=== PATIENT | male | born 1930 | race Caucasian/White ===

== ENCOUNTER 2020-07-27 13:57 | Inpatient (IN) ==
[2020-07-29] MEDS ORDERED: Dextrose Gel 15 GM/37.5 ML TUBE PO PRN ×2 (17:58)
[2020-07-29] MEDS ORDERED: D5% in Water 1,000 ML IVC PRN (17:58)
[2020-07-29] MEDS ORDERED: *HR* Dextrose 50 % in Water (Vial) 50 ML VIAL IVP PRN (17:58)
[2020-07-29] MEDS ORDERED: polyethylene glycoL 3350 17 GM POWD.PACK PO PRN (17:59)
[2020-07-29] MEDS: (Cyclosporine [Restasis] 1 DROP) OP SCH (18:49)
[2020-07-29] MEDS: Apixaban 2.5 MG TABLET PO SCH (20:54)
[2020-07-29] MEDS: Artificial Tears SOLN 15 ML BOTTLE BOTH EYES SCH (20:54)
[2020-07-29] MEDS: Insulin LISPRO 300 UNITS/3 ML VIAL SQ SCH (20:55)
[2020-07-29] MEDS: Sennosides/Docusate Sodium TABLET PO PRN (20:56)
[2020-07-29] MEDS: *HR* HYDROcodone/Acet 5/325 mg TABLET PO PRN (20:57)
[2020-07-30] MEDS: (Cyclosporine [Restasis] 1 DROP) OP SCH ×2 (04:55→17:01)
[2020-07-30] MEDS: *HR* HYDROcodone/Acet 5/325 mg TABLET PO PRN (04:55)
[2020-07-30 05:40] LABS: Basophils % 0.3 %; Eosinophils # 0.5 K/mcL (0.0-0.6); Eosinophils % 4.6 %; Hemoglobin 9.1 g/dL (12.9-16.9); Immature Granulocytes % 0.6 % (0-4); Lymphocytes # 1.9 K/mcL (0.6-4.6); Lymphocytes % 15.9 %; Mean Corpuscular HGB Conc 33.7 g/dL (31.6-35.5); Mean Corpuscular Hemoglobin 31.9 pg (28.0-33.3); Mean Corpuscular Volume 94.7 fL (83.0-100.0); Mean Platelet Volume 10.5 fL (9.4-12.4); Monocytes # 1.2 K/mcL (0.0-1.3); Platelet Count 205 K/mcL (140-400); Red Blood Count 2.85 M/mcL (4.19-5.50); Red Cell Distribution Width 13.2 % (11.5-14.5); Segmented Neutrophils % 68.6 %; White Blood Count 11.7 K/mcL (4.3-11.1)
[2020-07-30 05:57] LABS: Calcium 8.5 mg/dL (8.6-10.3); Potassium 4.4 mEq/L (3.5-5.1)
[2020-07-30] MEDS: Apixaban 2.5 MG TABLET PO SCH ×2 (08:14→20:46)
[2020-07-30] MEDS: Loratadine 10 MG TABLET PO SCH (08:14)
[2020-07-30] MEDS: Multivit/Ca/Min/Fe/FA 1 TAB TABLET PO SCH (08:14)
[2020-07-30] MEDS: Cholecalciferol (D-3) 1,000 UNIT (25MCG) TABLET PO SCH (08:14)
[2020-07-30] MEDS: (Omega-3/Dha/Epa/Fish Oil) PO SCH (08:15)
[2020-07-30] MEDS: Artificial Tears SOLN 15 ML BOTTLE BOTH EYES SCH ×4 (08:15→20:46)
[2020-07-30] MEDS: Insulin LISPRO 300 UNITS/3 ML VIAL SQ SCH ×4 (08:23→20:45)
[2020-07-30] MEDS: Insulin DETEMIR 100 UNIT/ML X5UNITS SQ SCH (08:23)
[2020-07-30] MEDS: Sennosides/Docusate Sodium TABLET PO PRN (18:24)
[2020-07-30] MEDS ORDERED: Bisacodyl 10 MG RECTAL SUPPOSITORY RC PRN (22:02)
[2020-07-30] MEDS ORDERED: Lactulose Oral Soln 20 GM/30 ML UDC PO PRN (22:02)
[2020-07-31] MEDS: (Cyclosporine [Restasis] 1 DROP) OP SCH ×2 (05:07→17:55)
[2020-07-31] MEDS: Loratadine 10 MG TABLET PO SCH (08:04)
[2020-07-31] MEDS: polyethylene glycoL 3350 17 GM POWD.PACK PO SCH (08:04)
[2020-07-31] MEDS: Multivit/Ca/Min/Fe/FA 1 TAB TABLET PO SCH (08:04)
[2020-07-31] MEDS: Sennosides/Docusate Sodium TABLET PO SCH ×2 (08:04→19:54)
[2020-07-31] MEDS: Cholecalciferol (D-3) 1,000 UNIT (25MCG) TABLET PO SCH (08:04)
[2020-07-31] MEDS: Apixaban 2.5 MG TABLET PO SCH ×2 (08:04→19:54)
[2020-07-31] MEDS: (Omega-3/Dha/Epa/Fish Oil) PO SCH (08:05)
[2020-07-31] MEDS: Insulin LISPRO 300 UNITS/3 ML VIAL SQ SCH ×4 (08:05→21:30)
[2020-07-31] MEDS: Artificial Tears SOLN 15 ML BOTTLE BOTH EYES SCH ×4 (08:16→19:54)
[2020-07-31] MEDS: Insulin DETEMIR 100 UNIT/ML X5UNITS SQ SCH (08:20)
[2020-07-31] MEDS: *HR* HYDROcodone/Acet 5/325 mg TABLET PO PRN ×2 (11:37→18:45)
[2020-07-31] MEDS ORDERED: SELENIUM SULFIDE APPL TP SCH (17:59)
[2020-08-01] MEDS: (Cyclosporine [Restasis] 1 DROP) OP SCH ×2 (04:41→18:16)
[2020-08-01 05:10] LABS: Basophils % 0.4 %; Eosinophils # 0.7 K/mcL (0.0-0.6); Eosinophils % 6.3 %; Hematocrit 26.1 % (37.5-50.1); Immature Granulocytes % 0.9 % (0-4); Lymphocytes # 2.4 K/mcL (0.6-4.6); Lymphocytes % 22.5 %; Mean Corpuscular HGB Conc 34.5 g/dL (31.6-35.5); Mean Corpuscular Hemoglobin 32.7 pg (28.0-33.3); Mean Corpuscular Volume 94.9 fL (83.0-100.0); Mean Platelet Volume 10.3 fL (9.4-12.4); Monocytes # 1.2 K/mcL (0.0-1.3); Monocytes % 11.1 %; Neutrophils # 6.2 K/mcL (1.6-8.9); Platelet Count 264 K/mcL (140-400); Red Blood Count 2.75 M/mcL (4.19-5.50); Red Cell Distribution Width 13.6 % (11.5-14.5); Segmented Neutrophils % 58.8 %; White Blood Count 10.6 K/mcL (4.3-11.1)
[2020-08-01 05:22] LABS: Calcium 8.8 mg/dL (8.6-10.3); Potassium 4.2 mEq/L (3.5-5.1)
[2020-08-01] MEDS: Sennosides/Docusate Sodium TABLET PO SCH ×2 (08:05→20:59)
[2020-08-01] MEDS: polyethylene glycoL 3350 17 GM POWD.PACK PO SCH (08:06)
[2020-08-01] MEDS: Cholecalciferol (D-3) 1,000 UNIT (25MCG) TABLET PO SCH (08:06)
[2020-08-01] MEDS: Multivit/Ca/Min/Fe/FA 1 TAB TABLET PO SCH (08:06)
[2020-08-01] MEDS: Loratadine 10 MG TABLET PO SCH (08:06)
[2020-08-01] MEDS: Artificial Tears SOLN 15 ML BOTTLE BOTH EYES SCH ×4 (08:06→21:00)
[2020-08-01] MEDS: Apixaban 2.5 MG TABLET PO SCH ×2 (08:06→20:58)
[2020-08-01] MEDS: Insulin LISPRO 300 UNITS/3 ML VIAL SQ SCH ×4 (08:13→21:00)
[2020-08-01] MEDS: Insulin DETEMIR 100 UNIT/ML X5UNITS SQ SCH (08:24)
[2020-08-01] MEDS: *HR* HYDROcodone/Acet 5/325 mg TABLET PO PRN ×3 (09:21→21:15)
[2020-08-02] MEDS: (Cyclosporine [Restasis] 1 DROP) OP SCH ×2 (05:44→18:09)
[2020-08-02] MEDS: *HR* HYDROcodone/Acet 5/325 mg TABLET PO PRN ×3 (05:45→21:53)
[2020-08-02] MEDS: Apixaban 2.5 MG TABLET PO SCH ×2 (08:08→19:46)
[2020-08-02] MEDS: polyethylene glycoL 3350 17 GM POWD.PACK PO SCH (08:08)
[2020-08-02] MEDS: Cholecalciferol (D-3) 1,000 UNIT (25MCG) TABLET PO SCH (08:08)
[2020-08-02] MEDS: Artificial Tears SOLN 15 ML BOTTLE BOTH EYES SCH ×4 (08:08→19:47)
[2020-08-02] MEDS: Insulin DETEMIR 100 UNIT/ML X5UNITS SQ SCH (08:08)
[2020-08-02] MEDS: Sennosides/Docusate Sodium TABLET PO SCH ×2 (08:08→19:46)
[2020-08-02] MEDS: Loratadine 10 MG TABLET PO SCH (08:09)
[2020-08-02] MEDS: Multivit/Ca/Min/Fe/FA 1 TAB TABLET PO SCH (08:09)
[2020-08-02] MEDS: Insulin LISPRO 300 UNITS/3 ML VIAL SQ SCH ×3 (08:09→21:33)
[2020-08-02] MEDS: Carbamide Peroxide 150 DROP/15 ML BOTTLE BOTH EARS SCH (19:47)
[2020-08-02] MEDS ORDERED: Carbamide Peroxide 150 DROP/15 ML BOTTLE LEFT EAR SCH (21:00)
[2020-08-03] MEDS: (Cyclosporine [Restasis] 1 DROP) OP SCH ×2 (06:29→17:26)
[2020-08-03] MEDS: Cholecalciferol (D-3) 1,000 UNIT (25MCG) TABLET PO SCH (08:44)
[2020-08-03] MEDS: Artificial Tears SOLN 15 ML BOTTLE BOTH EYES SCH ×4 (08:44→20:10)
[2020-08-03] MEDS: Multivit/Ca/Min/Fe/FA 1 TAB TABLET PO SCH (08:44)
[2020-08-03] MEDS: Apixaban 2.5 MG TABLET PO SCH ×2 (08:45→20:13)
[2020-08-03] MEDS: polyethylene glycoL 3350 17 GM POWD.PACK PO SCH (08:45)
[2020-08-03] MEDS: Carbamide Peroxide 150 DROP/15 ML BOTTLE BOTH EARS SCH ×2 (08:45→20:11)
[2020-08-03] MEDS: Loratadine 10 MG TABLET PO SCH (08:45)
[2020-08-03] MEDS: Sennosides/Docusate Sodium TABLET PO SCH ×2 (08:45→20:13)
[2020-08-03] MEDS: Insulin DETEMIR 100 UNIT/ML X5UNITS SQ SCH (08:52)
[2020-08-03] MEDS: Insulin LISPRO 300 UNITS/3 ML VIAL SQ SCH ×3 (12:32→20:27)
[2020-08-03] MEDS: *HR* HYDROcodone/Acet 5/325 mg TABLET PO PRN (20:19)
[2020-08-04] MEDS: (Cyclosporine [Restasis] 1 DROP) OP SCH ×2 (06:06→17:51)
[2020-08-04] MEDS: Insulin LISPRO 300 UNITS/3 ML VIAL SQ SCH ×4 (07:49→21:02)
[2020-08-04] MEDS: Sennosides/Docusate Sodium TABLET PO SCH ×2 (07:55→21:09)
[2020-08-04] MEDS: polyethylene glycoL 3350 17 GM POWD.PACK PO SCH (07:55)
[2020-08-04] MEDS: Cholecalciferol (D-3) 1,000 UNIT (25MCG) TABLET PO SCH (07:55)
[2020-08-04] MEDS: Multivit/Ca/Min/Fe/FA 1 TAB TABLET PO SCH (07:55)
[2020-08-04] MEDS: Apixaban 2.5 MG TABLET PO SCH ×2 (07:55→21:17)
[2020-08-04] MEDS: Loratadine 10 MG TABLET PO SCH (07:56)
[2020-08-04] MEDS: Artificial Tears SOLN 15 ML BOTTLE BOTH EYES SCH ×4 (07:56→21:08)
[2020-08-04] MEDS: Carbamide Peroxide 150 DROP/15 ML BOTTLE BOTH EARS SCH ×2 (07:56→21:09)
[2020-08-04] MEDS: Insulin DETEMIR 100 UNIT/ML X5UNITS SQ SCH (12:17)
[2020-08-04] MEDS: *HR* HYDROcodone/Acet 5/325 mg TABLET PO PRN ×2 (14:52→21:08)
[2020-08-05] MEDS: *HR* HYDROcodone/Acet 5/325 mg TABLET PO PRN ×3 (04:52→23:32)
[2020-08-05] MEDS: (Cyclosporine [Restasis] 1 DROP) OP SCH ×2 (04:58→17:22)
[2020-08-05] MEDS: Insulin LISPRO 300 UNITS/3 ML VIAL SQ SCH ×4 (07:53→22:16)
[2020-08-05] MEDS: Sennosides/Docusate Sodium TABLET PO SCH ×2 (09:07→22:17)
[2020-08-05] MEDS: Apixaban 2.5 MG TABLET PO SCH ×2 (09:07→22:14)
[2020-08-05] MEDS: polyethylene glycoL 3350 17 GM POWD.PACK PO SCH ×2 (09:07→09:09)
[2020-08-05] MEDS: Multivit/Ca/Min/Fe/FA 1 TAB TABLET PO SCH (09:07)
[2020-08-05] MEDS: Loratadine 10 MG TABLET PO SCH (09:07)
[2020-08-05] MEDS: Cholecalciferol (D-3) 1,000 UNIT (25MCG) TABLET PO SCH (09:07)
[2020-08-05] MEDS: Artificial Tears SOLN 15 ML BOTTLE BOTH EYES SCH ×4 (09:24→22:17)
[2020-08-05] MEDS: Insulin DETEMIR 100 UNIT/ML X5UNITS SQ SCH (09:24)
[2020-08-05] MEDS: Carbamide Peroxide 150 DROP/15 ML BOTTLE BOTH EARS SCH ×2 (09:24→22:17)
[2020-08-06] MEDS: (Cyclosporine [Restasis] 1 DROP) OP SCH ×2 (05:39→18:39)
[2020-08-06] MEDS: Insulin LISPRO 300 UNITS/3 ML VIAL SQ SCH ×4 (07:50→21:56)
[2020-08-06] MEDS: Multivit/Ca/Min/Fe/FA 1 TAB TABLET PO SCH (08:16)
[2020-08-06] MEDS: Cholecalciferol (D-3) 1,000 UNIT (25MCG) TABLET PO SCH (08:16)
[2020-08-06] MEDS: Apixaban 2.5 MG TABLET PO SCH ×2 (08:17→21:59)
[2020-08-06] MEDS: Artificial Tears SOLN 15 ML BOTTLE BOTH EYES SCH ×4 (08:17→22:08)
[2020-08-06] MEDS: Sennosides/Docusate Sodium TABLET PO SCH ×2 (08:17→21:59)
[2020-08-06] MEDS: Loratadine 10 MG TABLET PO SCH (08:17)
[2020-08-06] MEDS: polyethylene glycoL 3350 17 GM POWD.PACK PO SCH (08:17)
[2020-08-06] MEDS: Carbamide Peroxide 150 DROP/15 ML BOTTLE BOTH EARS SCH ×2 (08:17→22:08)
[2020-08-06] MEDS: Insulin DETEMIR 100 UNIT/ML X5UNITS SQ SCH (08:18)
[2020-08-06] MEDS: *HR* HYDROcodone/Acet 5/325 mg TABLET PO PRN ×2 (15:02→21:59)
[2020-08-07] MEDS: (Cyclosporine [Restasis] 1 DROP) OP SCH ×2 (06:27→16:47)
[2020-08-07] MEDS: *HR* HYDROcodone/Acet 5/325 mg TABLET PO PRN ×3 (06:28→23:06)
[2020-08-07] MEDS: Insulin LISPRO 300 UNITS/3 ML VIAL SQ SCH ×4 (08:36→20:59)
[2020-08-07] MEDS: Loratadine 10 MG TABLET PO SCH (08:37)
[2020-08-07] MEDS: Cholecalciferol (D-3) 1,000 UNIT (25MCG) TABLET PO SCH (08:37)
[2020-08-07] MEDS: Multivit/Ca/Min/Fe/FA 1 TAB TABLET PO SCH (08:37)
[2020-08-07] MEDS: Apixaban 2.5 MG TABLET PO SCH ×2 (08:37→20:45)
[2020-08-07] MEDS: polyethylene glycoL 3350 17 GM POWD.PACK PO SCH (08:38)
[2020-08-07] MEDS: Sennosides/Docusate Sodium TABLET PO SCH ×2 (08:38→21:00)
[2020-08-07] MEDS: Artificial Tears SOLN 15 ML BOTTLE BOTH EYES SCH ×4 (08:38→20:59)
[2020-08-07] MEDS: Carbamide Peroxide 150 DROP/15 ML BOTTLE BOTH EARS SCH ×2 (08:38→20:59)
[2020-08-07] MEDS: Insulin DETEMIR 100 UNIT/ML X5UNITS SQ SCH (08:46)
[2020-08-07] MEDS ORDERED: *HR* HYDROcodone/Acet 5/325 mg TABLET PO PRN (15:54)
[2020-08-07] MEDS: *HR* HYDROcodone/Acet 5/325 mg TABLET PO ONE ×2 (16:17→16:56)
[2020-08-08] MEDS: Artificial Tears SOLN 15 ML BOTTLE BOTH EYES SCH (05:53)
[2020-08-08] MEDS: *HR* HYDROcodone/Acet 5/325 mg TABLET PO PRN (05:54)
[2020-08-08] MEDS: (Cyclosporine [Restasis] 1 DROP) OP SCH (06:04)
[2020-08-08 07:12] VITALS: BP 137/68
[2020-08-08] MEDS: Loratadine 10 MG TABLET PO SCH (08:19)
[2020-08-08] MEDS: Cholecalciferol (D-3) 1,000 UNIT (25MCG) TABLET PO SCH (08:19)
[2020-08-08] MEDS: Multivit/Ca/Min/Fe/FA 1 TAB TABLET PO SCH (08:20)
[2020-08-08] MEDS: Carbamide Peroxide 150 DROP/15 ML BOTTLE BOTH EARS SCH (08:21)
[2020-08-08] MEDS: Sennosides/Docusate Sodium TABLET PO SCH (08:21)
[2020-08-08] MEDS: Apixaban 2.5 MG TABLET PO SCH (08:21)
[2020-08-08] MEDS: polyethylene glycoL 3350 17 GM POWD.PACK PO SCH (08:23)
[2020-08-08] MEDS: Insulin DETEMIR 100 UNIT/ML X5UNITS SQ SCH (08:39)
[2020-08-08] MEDS: Insulin LISPRO 300 UNITS/3 ML VIAL SQ SCH ×2 (08:39→12:09)
== END 2020-08-08 11:45 | disposition home health service (06) | DRG 561 ==
LOC: INPGRE 07-29 16:57
PROVIDERS: ADMIT Family Medicine; ATTEND Family Medicine